=== PATIENT | female | born 1945 | race Caucasian/White ===

== ENCOUNTER 2017-06-30 09:28 | Inpatient (IN) | payer MEDICARE, OTHER ==
[~2017-06-30] VITALS: Ht 170.2 cm; Wt 137.3 kg
[~2017-06-30 09:28] MED LIST: ACET-2615 PO; ASPI81TA52 PO; FURO-150 PO; IBUP-1984 PO; LOP25T PO; LORA10TA65 PO; MULT-1085 PO; POTA10TA19 PO; TRAM50TA2 PO
[2017-06-30 10:34] LABS: BASOPHILS % (AUTO) 0.1 % (0-1); EOSINOPHILS # (AUTO) 0.2 X10'3 (0-0.9); EOSINOPHILS % (AUTO) 1.4 % (0-6); HEMATOCRIT 43.1 % (35.0-45.0); HEMOGLOBIN 14.7 g/dl (12.0-16.0); LYMPHOCYTES # (AUTO) 0.7 X10'3 (1.1-4.8); MEAN CORPUSCULAR HEMOGLOBIN 30.1 PG (27.0-31.0); MEAN CORPUSCULAR HGB CONC 34.1 % (33.0-36.5); MEAN CORPUSCULAR VOLUME 88.2 FL (78-98); MEAN PLATELET VOLUME 7.7 FL (7.4-10.4); MONOCYTES # (AUTO) 1.6 X10'3 (0-0.9); NEUTROPHILS % (AUTO) 85.5 % (42-75); PLATELET COUNT 243 X10'3 (140-440); RED BLOOD COUNT 4.89 X10'6 (4.20-5.60); RED CELL DISTRIBUTION WIDTH 14.5 % (11.5-14.5); WHITE BLOOD COUNT 17.5 X10'3 (4.5-11.0)
[2017-06-30 10:39] LABS: CLARITY,URINE SLIGHTLY CLOUDY (Clear); COLOR,URINE YELLOW (Yellow); GLUCOSE, URINE NEGATIVE (Neg); KETONES,URINE NEGATIVE (Neg); LEUKOCYTE ESTERASE ,URINE MODERATE (Neg); NITRITES, URINE POSITIVE (Neg); OCCULT BLOOD,URINE LARGE (Neg); PH,URINE 6.5 (4.8-8.0); PROTEIN,URINE 100 mg/dl (Neg)
[2017-06-30 10:45] LABS: UA COLLECTION TYPE STRAIGHT CATH
[2017-06-30 10:46] LABS: INR 1.1 INR; PARTIAL THROMBOPLASTIN TIME 31 SECONDS (22-32); PROTHROMBIN TIME 11.1 SECONDS (9.0-12.0)
[2017-06-30 10:47] LABS: BACTERIA,URINE 3+ /HPF (Neg); MUCUS STRANDS FEW /LPF (Neg); SQUAMOUS EPITHELIAL CELL,UR MODERATE /LPF (FEW); WBC,URINE TNTC /HPF (0-4)
[2017-06-30 10:51] LABS: ALANINE AMINOTRANSFERASE 45 U/L (12-78); ALBUMIN 2.9 G/DL (3.4-5.0); ALBUMIN/GLOBULIN RATIO 0.6 (1.1-1.5); ALKALINE PHOSPHATASE 118 IU/L (46-116); ANION GAP 11 (8-16); ASPARTATE AMINO TRANSFERASE 37 U/L (10-37); BILIRUBIN,TOTAL 0.9 MG/DL (0.1-1.0); BLOOD UREA NITROGEN 22 MG/DL (7-18); BUN/CREATININE RATIO 15.5 (6.6-38.0); CALCIUM 9.2 MG/DL (8.5-10.1); CHLORIDE 101 MMOL/L (99-107); CREATININE 1.42 MG/DL (0.40-0.90); GLUCOSE 131 MG/DL (70-104); MAGNESIUM 1.8 MG/DL (1.5-2.4); POTASSIUM 3.6 MMOL/L (3.5-5.1); SODIUM 138 MMOL/L (135-145); TOTAL CARBON DIOXIDE 26.2 MMOL/L (24-32); TOTAL PROTEIN 8.1 G/DL (6.4-8.2); eGFR 37 ML/MIN
[2017-06-30] MEDS ORDERED: CefTRIAXone 2gm/D5W 50ml 50 ML IV ONE (11:15)
[2017-06-30] MEDS ORDERED: traMADol 50MG tablet PO PRN (11:55)
[2017-06-30] MEDS ORDERED: non-formulary drug (Acetaminophen (Tylenol Extra Strength) 1 TAB) PO PRN (11:55)
[2017-06-30] MEDS ORDERED: mag hydrox/Alum hydrox/simeth 30ml oral suspension PO PRN (12:00)
[2017-06-30] MEDS ORDERED: magnesium Cl slow-release 64mg tablet PO PRN (12:00)
[2017-06-30] MEDS ORDERED: magnesium 2GM in 50ml NS 50 ML IV PRN (12:00)
[2017-06-30] MEDS ORDERED: potassium Cl 20 mEq SR tablet PO PRN ×2 (12:00)
[2017-06-30] MEDS ORDERED: HYDROcodone/acetaminophen 10/325mg tab PO PRN (12:00)
[2017-06-30] MEDS ORDERED: ondansetron/PF 4mg/2ml inj IV PRN (12:00)
[2017-06-30] MEDS ORDERED: morphine 4 MG/ML inj SYRINge IV PRN (12:00)
[2017-06-30] MEDS ORDERED: magnesium 4gm in 100ml NS 100 ML IV PRN (12:00)
[2017-06-30] MEDS ORDERED: magnesium hydroxide 30ml (MOM) UD suspension PO PRN (12:00)
[2017-06-30] MEDS ORDERED: potassium Cl 40MEQ/NS 500ml 500 ML IV PRN ×2 (12:00)
[2017-06-30] MEDS ORDERED: HYDROcodone/acetaminophen 5mg/325mg tablet PO PRN (12:00)
[2017-06-30] MEDS: normal saline 1000ml 1,000 ML IV SCH (12:12)
[2017-06-30] MEDS: acetaminophen 325mg tablet PO PRN (15:54)
[2017-06-30] MEDS ORDERED: ibuprofen tablet 400 MG TABLET PO ONE (20:30)
[2017-06-30] MEDS: metoprolol tartrate 25mg tablet PO SCH (20:35)
[2017-07-01] MEDS: normal saline 1000ml 1,000 ML IV SCH (02:54)
[2017-07-01 06:49] LABS: BASOPHILS % (AUTO) 0 % (0-1); EOSINOPHILS % (AUTO) 0.1 % (0-6); HEMATOCRIT 44.1 % (35.0-45.0); HEMOGLOBIN 14.9 g/dl (12.0-16.0); LYMPHOCYTES # (AUTO) 0.4 X10'3 (1.1-4.8); LYMPHOCYTES % (AUTO) 3.3 % (21-51); MEAN CORPUSCULAR HEMOGLOBIN 29.7 PG (27.0-31.0); MEAN CORPUSCULAR HGB CONC 33.8 % (33.0-36.5); MEAN PLATELET VOLUME 7.6 FL (7.4-10.4); MONOCYTES # (AUTO) 0.7 X10'3 (0-0.9); MONOCYTES % (AUTO) 6.4 % (2-12); NEUTROPHILS # (AUTO) 9.7 X10'3 (1.8-7.7); NEUTROPHILS % (AUTO) 90.2 % (42-75); PLATELET COUNT 197 X10'3 (140-440); RED BLOOD COUNT 5.01 X10'6 (4.20-5.60); RED CELL DISTRIBUTION WIDTH 15.2 % (11.5-14.5); WHITE BLOOD COUNT 10.8 X10'3 (4.5-11.0)
[2017-07-01 06:54] LABS: ALBUMIN 2.1 G/DL (3.4-5.0); ANION GAP 14 (8-16); BLOOD UREA NITROGEN 20 MG/DL (7-18); BUN/CREATININE RATIO 15.5 (6.6-38.0); CALCIUM 7.3 MG/DL (8.5-10.1); CHLORIDE 108 MMOL/L (99-107); CREATININE 1.29 MG/DL (0.40-0.90); GLUCOSE 96 MG/DL (70-104); MAGNESIUM 1.7 MG/DL (1.5-2.4); POTASSIUM 3.3 MMOL/L (3.5-5.1); SODIUM 143 MMOL/L (135-145); TOTAL CARBON DIOXIDE 21.2 MMOL/L (24-32); eGFR 41 ML/MIN
[2017-07-01] MEDS: potassium chloride 10mEq ER tablet PO SCH (07:54)
[2017-07-01] MEDS: enoxaparin 30mg/0.3ml syringe SQ SCH (07:54)
[2017-07-01] MEDS: CefTRIAXone/D5W-Rocephin 1gm 50 ML IV SCH (07:55)
[2017-07-01] MEDS: aspirin 81mg tablet.DR PO SCH (07:55)
[2017-07-01] MEDS: metoprolol tartrate 25mg tablet PO SCH ×2 (07:55→20:16)
[2017-07-01] MEDS: multivitamins, therapeutics tablet PO SCH (07:55)
[2017-07-01] MEDS: loratadine 10mg tablet PO SCH (07:55)
[2017-07-01] MEDS ORDERED: non-formulary drug (Potassium Chloride (Klor-Con) 1 TAB) PO SCH (08:00)
[2017-07-01] MEDS: K and/or MAG REPLACEMENT MC SCH (08:00)
[2017-07-01] MEDS ORDERED: non-formulary drug (Multivitamin (Multi Vitamin Daily) 1 EACH) PO SCH (08:00)
[2017-07-01 08:03] VITALS: BP 181/89
[2017-07-01] MEDS: acetaminophen 325mg tablet PO PRN ×3 (11:08→22:26)
[2017-07-01 11:38] VITALS: BP 156/74
[2017-07-01] MEDS ORDERED: cloNIDine 0.1 mg tablet PO PRN (15:05)
[2017-07-01] MEDS ORDERED: furosemide 20MG tablet PO ONE (15:10)
[2017-07-01 16:14] VITALS: BP 181/94
[2017-07-01 18:05] VITALS: BP 129/68
[2017-07-01 20:00] VITALS: BP 123/71
[2017-07-01] MEDS: lactobacillus rhamnosus 10,000 MMU CELLS/CAPSULE PO SCH (20:16)
[2017-07-02] VITALS: BP 146/75
[2017-07-02 04:43] LABS: BASOPHILS % (AUTO) 0.6 % (0-1); EOSINOPHILS % (AUTO) 0.6 % (0-6); HEMATOCRIT 40.5 % (35.0-45.0); LYMPHOCYTES % (AUTO) 12.4 % (21-51); MEAN CORPUSCULAR HEMOGLOBIN 30.1 PG (27.0-31.0); MEAN CORPUSCULAR HGB CONC 34.4 % (33.0-36.5); MEAN CORPUSCULAR VOLUME 87.4 FL (78-98); MEAN PLATELET VOLUME 7.7 FL (7.4-10.4); MONOCYTES # (AUTO) 1.1 X10'3 (0-0.9); MONOCYTES % (AUTO) 14.3 % (2-12); NEUTROPHILS # (AUTO) 5.7 X10'3 (1.8-7.7); NEUTROPHILS % (AUTO) 72.1 % (42-75); PLATELET COUNT 176 X10'3 (140-440); RED BLOOD COUNT 4.64 X10'6 (4.20-5.60); RED CELL DISTRIBUTION WIDTH 14.9 % (11.5-14.5); WHITE BLOOD COUNT 7.9 X10'3 (4.5-11.0)
[2017-07-02 05:12] LABS: ALBUMIN 2.3 G/DL (3.4-5.0); ANION GAP 13 (8-16); BLOOD UREA NITROGEN 20 MG/DL (7-18); BUN/CREATININE RATIO 14.1 (6.6-38.0); CALCIUM 8.7 MG/DL (8.5-10.1); CHLORIDE 102 MMOL/L (99-107); CREATININE 1.42 MG/DL (0.40-0.90); GLUCOSE 111 MG/DL (70-104); POTASSIUM 3.2 MMOL/L (3.5-5.1); SODIUM 138 MMOL/L (135-145); TOTAL CARBON DIOXIDE 23.2 MMOL/L (24-32); eGFR 37 ML/MIN
[2017-07-02] MEDS: CefTRIAXone/D5W-Rocephin 1gm 50 ML IV SCH (08:00)
[2017-07-02] MEDS: aspirin 81mg tablet.DR PO SCH (08:00)
[2017-07-02] MEDS: multivitamins, therapeutics tablet PO SCH (08:00)
[2017-07-02] MEDS: K and/or MAG REPLACEMENT MC SCH (08:00)
[2017-07-02] MEDS: potassium chloride 10mEq ER tablet PO SCH (08:00)
[2017-07-02] MEDS: metoprolol tartrate 25mg tablet PO SCH ×2 (08:00→21:15)
[2017-07-02] MEDS: lactobacillus rhamnosus 10,000 MMU CELLS/CAPSULE PO SCH ×2 (08:00→21:15)
[2017-07-02] MEDS: furosemide 20MG tablet PO SCH (08:00)
[2017-07-02] MEDS: enoxaparin 30mg/0.3ml syringe SQ SCH (08:00)
[2017-07-02] MEDS: loratadine 10mg tablet PO SCH (08:00)
[2017-07-02] MEDS ORDERED: LEVO500T2 PO (10:37)
[2017-07-02] MEDS ORDERED: LACT1CAP26 PO (10:37)
[2017-07-02] MEDS ORDERED: AMLO10TA4 PO (10:37)
[2017-07-02 11:00] VITALS: BP 97/64
[2017-07-02] MEDS: acetaminophen 325mg tablet PO PRN ×2 (11:00→21:18)
[2017-07-02 20:00] VITALS: BP 161/80
[2017-07-03] VITALS: BP 130/68
[2017-07-03 05:36] LABS: BASOPHILS # (AUTO) 0.1 X10'3 (0-0.2); BASOPHILS % (AUTO) 0.9 % (0-1); EOSINOPHILS # (AUTO) 0.2 X10'3 (0-0.9); EOSINOPHILS % (AUTO) 2.8 % (0-6); HEMATOCRIT 38.5 % (35.0-45.0); LYMPHOCYTES % (AUTO) 24.7 % (21-51); MEAN CORPUSCULAR HEMOGLOBIN 29.8 PG (27.0-31.0); MEAN CORPUSCULAR HGB CONC 33.9 % (33.0-36.5); MEAN PLATELET VOLUME 8.1 FL (7.4-10.4); MONOCYTES # (AUTO) 1.8 X10'3 (0-0.9); NEUTROPHILS % (AUTO) 49.6 % (42-75); PLATELET COUNT 215 X10'3 (140-440); RED BLOOD COUNT 4.37 X10'6 (4.20-5.60)
[2017-07-03 05:50] LABS: ALBUMIN 2.3 G/DL (3.4-5.0); ANION GAP 9 (8-16); BLOOD UREA NITROGEN 20 MG/DL (7-18); BUN/CREATININE RATIO 16.7 (6.6-38.0); CALCIUM 8.9 MG/DL (8.5-10.1); CHLORIDE 100 MMOL/L (99-107); GLUCOSE 113 MG/DL (70-104); SODIUM 136 MMOL/L (135-145); TOTAL CARBON DIOXIDE 26.7 MMOL/L (24-32); eGFR 44 ML/MIN
[2017-07-03 06:31] LABS: POTASSIUM 2.9 MMOL/L (3.5-5.1)
[2017-07-03 07:00] VITALS: BP 137/72
[2017-07-03] MEDS: CefTRIAXone/D5W-Rocephin 1gm 50 ML IV SCH (08:37)
[2017-07-03] MEDS: enoxaparin 30mg/0.3ml syringe SQ SCH (08:44)
[2017-07-03] MEDS: aspirin 81mg tablet.DR PO SCH (08:46)
[2017-07-03] MEDS: metoprolol tartrate 25mg tablet PO SCH (08:46)
[2017-07-03] MEDS: multivitamins, therapeutics tablet PO SCH (08:46)
[2017-07-03] MEDS: loratadine 10mg tablet PO SCH (08:47)
[2017-07-03] MEDS: furosemide 20MG tablet PO SCH (08:47)
[2017-07-03] MEDS: potassium chloride 10mEq ER tablet PO SCH (08:47)
[2017-07-03] MEDS: lactobacillus rhamnosus 10,000 MMU CELLS/CAPSULE PO SCH (08:47)
[2017-07-03] MEDS: K and/or MAG REPLACEMENT MC SCH (08:52)
[2017-07-03 11:00] VITALS: BP 118/68
[2017-07-03] MEDS ORDERED: potassium Cl 20 mEq SR tablet PO PRN (13:50)
[2017-07-03] MEDS: acetaminophen 325mg tablet PO PRN (14:35)
[2017-07-03 15:21] VITALS: BP 118/68
== END 2017-07-03 17:24 | disposition home health service (06) | DRG 871 ==
LOC: ER 09:28 → ED HOLD 11:58 → EDBEDREQ 07-01 06:35 → SUR 3N 07-01 07:22
PROVIDERS: ADMIT Internal Medicine; ATTEND Internal Medicine
DX: A41.51 Sepsis due to Escherichia coli [E. coli] (principal); N17.0 Acute kidney failure with tubular necrosis; E43 Unspecified severe protein-calorie malnutrition; N39.0 Urinary tract infection, site not specified; E86.0 Dehydration; Z68.42 Body mass index [BMI] 45.0-49.9, adult; I10 Essential (primary) hypertension; B96.20 Unspecified Escherichia coli [E. coli] as the cause of diseases classified elsewhere; E66.01 Morbid (severe) obesity due to excess calories; Z95.3 Presence of xenogenic heart valve; Z88.2 Allergy status to sulfonamides; Z88.1 Allergy status to other antibiotic agents; Z88.8 Allergy status to other drugs, medicaments and biological substances; Z88.6 Allergy status to analgesic agent; Z79.899 Other long term (current) drug therapy; Z79.82 Long term (current) use of aspirin
CPT/HCPCS: 36415; 71045; 76775; 80048; 80053; 81001; 83605; 83735; 84132; 84145; 85025; 85610; 85730; 87040; 87070; 87077; 87088; 87186; 93005; 96365; 99285; A6449; J0696; J1650; J7030

== ENCOUNTER 2018-07-25 12:18 | Emergency (ER) | payer MEDICARE, OTHER ==
[~2018-07-25] VITALS: Ht 165.1 cm; Wt 139.6 kg
[~2018-07-25 12:18] MED LIST changes: -ACET-2615 PO; +AMLO10TA4 PO; -IBUP-1984 PO; +LACT1CAP26 PO
[2018-07-25] MEDS ORDERED: ondansetron/PF 4mg/2ml inj IV ONE (13:20)
[2018-07-25] MEDS: morphine 4 MG/ML inj SYRINge IV PRN ×2 (13:34→13:51)
[2018-07-25 13:52] LABS: BASOPHILS # (AUTO) 0.1 X10'3 (0-0.2); BASOPHILS % (AUTO) 1.1 % (0-1); EOSINOPHILS # (AUTO) 0.5 X10'3 (0-0.9); EOSINOPHILS % (AUTO) 5.1 % (0-6); HEMATOCRIT 43.8 % (35.0-45.0); HEMOGLOBIN 14.5 g/dl (12.0-16.0); LYMPHOCYTES % (AUTO) 20.1 % (21-51); MEAN CORPUSCULAR HEMOGLOBIN 29.8 PG (27.0-31.0); MEAN CORPUSCULAR HGB CONC 33.1 g/dL (33.0-36.5); MEAN PLATELET VOLUME 8.3 FL (7.4-10.4); MONOCYTES # (AUTO) 1.3 X10'3 (0-0.9); MONOCYTES % (AUTO) 12.6 % (2-12); NEUTROPHILS # (AUTO) 6.1 X10'3 (1.8-7.7); NEUTROPHILS % (AUTO) 61.1 % (42-75); PLATELET COUNT 297 X10'3 (140-440); RED BLOOD COUNT 4.87 X10'6 (4.20-5.60); RED CELL DISTRIBUTION WIDTH 14.8 % (11.5-14.5); WHITE BLOOD COUNT 10.1 X10'3 (4.5-11.0)
[2018-07-25 14:09] LABS: ALANINE AMINOTRANSFERASE 22 U/L (12-78); ALBUMIN 3.2 G/DL (3.4-5.0); ALBUMIN/GLOBULIN RATIO 0.7 (1.1-1.5); ALKALINE PHOSPHATASE 107 IU/L (46-116); ANION GAP 5 (8-16); ASPARTATE AMINO TRANSFERASE 17 U/L (10-37); BILIRUBIN,TOTAL 0.4 MG/DL (0.1-1.0); BLOOD UREA NITROGEN 18 MG/DL (7-18); BUN/CREATININE RATIO 17.1 (6.6-38.0); CALCIUM 9.5 MG/DL (8.5-10.1); CHLORIDE 105 MMOL/L (99-107); CREATININE 1.05 MG/DL (0.40-0.90); GLUCOSE 89 MG/DL (70-104); LIPASE 140 U/L (73-393); POTASSIUM 3.9 MMOL/L (3.5-5.1); SODIUM 140 MMOL/L (135-145); TOTAL CARBON DIOXIDE 30.1 MMOL/L (24-32); TOTAL PROTEIN 7.6 G/DL (6.4-8.2); eGFR 52 ML/MIN
--- NOTE | 2018-07-25 14:34 | NUR ---
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
[2018-07-25 14:50] LABS: CLARITY,URINE CLEAR (Clear); COLOR,URINE YELLOW (Yellow); GLUCOSE, URINE NEGATIVE (Neg); KETONES,URINE NEGATIVE (Neg); LEUKOCYTE ESTERASE ,URINE NEGATIVE (Neg); NITRITES, URINE NEGATIVE (Neg); OCCULT BLOOD,URINE SMALL (Neg); PROTEIN,URINE NEGATIVE (Neg); UROBILINOGEN,URINE 0.2 E.U/dL (0.2-1.0)
[2018-07-25 14:55] LABS: UA COLLECTION TYPE CLN CATCH MIDSTREAM
[2018-07-25 14:56] LABS: BACTERIA,URINE NONE SEEN /HPF (Neg); MUCUS STRANDS NONE SEEN /LPF (Neg); RBC,URINE 0-2 /HPF (0-2); SQUAMOUS EPITHELIAL CELL,UR FEW /LPF (FEW); WBC,URINE NONE SEEN /HPF (0-4)
[2018-07-25 15:55] VITALS: BP 149/81
== END 2018-07-25 15:57 | disposition home or self-care (01) ==
LOC: ER 12:19
DX: R10.31 Right lower quadrant pain (principal); Z98.890 Other specified postprocedural states; Z88.2 Allergy status to sulfonamides; Z88.1 Allergy status to other antibiotic agents; Z88.5 Allergy status to narcotic agent; Z91.040 Latex allergy status; Z88.8 Allergy status to other drugs, medicaments and biological substances; Z79.82 Long term (current) use of aspirin; Z79.899 Other long term (current) drug therapy
CPT/HCPCS: 36415; 74176; 80053; 81001; 83690; 85025; 96374; 96375; 99284; J2270; J2405